=== PATIENT | female | born 1950 | race Caucasian/White ===

== ENCOUNTER 2021-06-13 11:22 | Outpatient (CLI) | payer MEDICARE, OTHER ==
[2021-06-14 13:10] LABS: SARS-CoV-2 PCR by NAA Not Detected (NotDetected)
== END 2021-06-13 11:23 | disposition home or self-care (01) ==
LOC: CSHLAB 11:22
PROVIDERS: ATTEND Internal Medicine Gastroenterology
DX: Z20.822 Contact with and (suspected) exposure to COVID-19 (principal)
CPT/HCPCS: U0003; U0005

== ENCOUNTER 2021-06-16 05:53 | Day surgery (SDC) | payer MEDICARE, OTHER ==
[2021-06-14 13:43] VITALS: BMI 33.8
[2021-06-16] MEDS ORDERED: Lidocaine 1% MPF 2 ML VIAL ONE (06:21)
[2021-06-16] MEDS ORDERED: PROPOFOL 40 ML ONE ×2 (06:43→06:55)
[2021-06-16] MEDS ORDERED: Lidocaine 1% PF 5 ML VIAL ONE (06:43)
[2021-06-16] MEDS ORDERED: Dexamethasone 4 mg/ml Vial ONE (07:14)
[2021-06-16] MEDS ORDERED: Ondansetron PF 4 MG/2 ML Vial ONE (07:14)
[2021-06-16] MEDS ORDERED: diphenhydrAMINE 50 MG/ML VIAL ONE (07:39)
== END 2021-06-16 09:15 | disposition home or self-care (01) ==
LOC: CSHSDC 05:53
PROVIDERS: ATTEND Internal Medicine Gastroenterology
PROC: 0DBM8ZZ Excision of Descending Colon, Via Natural or Artificial Opening Endoscopic (ICD-10-PCS; principal; 2021-06-16)
DX: Z12.11 Encounter for screening for malignant neoplasm of colon (principal); D12.4 Benign neoplasm of descending colon; K57.30 Diverticulosis of large intestine without perforation or abscess without bleeding; K64.8 Other hemorrhoids; E03.9 Hypothyroidism, unspecified
CPT/HCPCS: 88305; J1100; J1200; J2405; J2704

== ENCOUNTER 2021-08-16 10:10 | Outpatient (CLI) | payer MEDICARE, OTHER | END 2021-08-16 10:11 | disposition home or self-care (01) | LOC: CSHMAMMO 10:10 | PROVIDERS: ATTEND Family Medicine | DX: Z13.820 Encounter for screening for osteoporosis (principal); Z78.0 Asymptomatic menopausal state | CPT/HCPCS: 77080 ==

== ENCOUNTER 2023-11-08 14:12 | Emergency (ER) | payer MEDICARE, OTHER ==
[2023-11-08] MEDS ORDERED: Ondansetron ODT 4 MG TAB ONE (15:44)
[2023-11-08] MEDS ORDERED: predniSONE 20 MG TAB ONE (16:29)
== END 2023-11-08 14:33 | disposition home or self-care (01) ==
LOC: CSHERS 14:12
DX: M25.562 Pain in left knee (principal)
CPT/HCPCS: J7512; Q0162

== ENCOUNTER 2023-11-30 09:06 | Outpatient (CLI) | payer MEDICARE, OTHER | END 2023-11-30 09:07 | disposition home or self-care (01) | LOC: CSHMRI 09:06 | PROVIDERS: ATTEND Family Medicine | DX: M79.605 Pain in left leg (principal); S83.242A Other tear of medial meniscus, current injury, left knee, initial encounter; M23.301 Other meniscus derangements, unspecified lateral meniscus, left knee ==